=== PATIENT | male | born 1960 | race Caucasian/White ===

== ENCOUNTER 2019-06-04 12:13 | Inpatient (IN) ==
[2019-06-04 12:43] LABS: BASO# 0.01 X1000 (0.0-0.2); BASO% 0.1 % (0.0-0.8); EOS# 0.14 X1000 (0.0-0.7); EOS% 1.7 % (0.0-10.0); HEMATOCRIT 40.2 % (42.0-52.0); HEMOGLOBIN 13.4 g/dL (14.0-18.0); IMM GRAN# 0.03 X1000 (0.0-0.04); IMM GRAN% 0.4 % (0.0-0.5); LYMPH# 1.27 X1000 (1.2-3.4); MCH 29.8 PG (27-31); MCHC 33.3 g/dL (33-37); MCV 89.3 FL (81-99); MONO# 1.12 X1000 (0.11-0.59); MONO% 13.2 % (1.7-9.3); MPV 10.3 FL (7.4-10.4); NEUT# 5.89 X1000 (1.4-6.5); NEUT% 69.6 % (42.2-75.2); PLT 148 X1000 (130-400); RDW 13.8 % (11.5-14.5); WBC 8.46 X1000 (4.8-10.8)
[2019-06-04 12:59] LABS: ALBUMIN 3.6 g/dL (3.5-5.0); CALCIUM 7.8 mg/dL (8.8-10.2); CREATININE 1.4 mg/dL (0.7-1.2); POTASSIUM 4.7 mmol/L (3.5-5.1); TOTAL BILIRUBIN 0.7 mg/dL (0.20-1.00); TOTAL PROTEIN 6.6 g/dL (6.3-8.3)
[2019-06-04] MEDS ORDERED: NS 500 ML IV ONE (13:01)
--- NOTE | 2019-06-04 13:05 | PROVIDER DOCUMENTATION ---
HPI-Abdominal Pain/GI Problem - General Chief Complaint: Abdominal Pain Stated Complaint: N / D / ABD PAIN Time Seen by Provider: 06/04/19 12:44 Allergies/Adverse Reactions: Patient Allergies Allergy/AdvReac Type Severity Reaction Status Date / Time No Known Allergies Allergy Verified 06/04/19 16:12 Home Medications: Home Medication List Medication Instructions Recorded Confirmed Last Taken Type Insulin Aspart [Novolog] 10 units SUBQ TID AC 07/24/14 06/04/19 06/03/19 History Amiodarone [Cordarone] 200 mg PO DAILY 09/03/17 06/04/19 06/03/19 History Ascorbic Acid 500 mg PO BID 09/03/17 06/04/19 06/03/19 History Aspirin EC 81 mg PO DAILY 09/03/17 06/04/19 06/03/19 History Atorvastatin Calcium [Lipitor] 40 mg PO HS 09/03/17 06/04/19 06/03/19 History Bupropion HCl [Bupropion HCl Sr] 150 mg PO DAILY 09/03/17 06/04/19 06/03/19 History Carvedilol [Coreg] 6.25 mg PO BID 09/03/17 06/04/19 06/03/19 History Clopidogrel Bisulfate [Plavix] 75 mg PO DAILY 09/03/17 06/04/19 06/03/19 History Dexlansoprazole [Dexilant] 60 mg PO DAILY 09/03/17 06/04/19 06/03/19 History Ferrous Sulfate [Ferosul] 325 mg PO BID 09/03/17 06/04/19 06/03/19 History Furosemide [Lasix] 40 mg PO DAILY 09/03/17 06/04/19 06/03/19 History Gabapentin 600 mg PO TID 09/03/17 06/04/19 06/03/19 History Metoclopramide HCl 10 mg PO 4XDAY 09/03/17 06/04/19 06/03/19 History Mometasone/Formoterol [Dulera 100 2 inh PO BID 09/03/17 06/04/19 06/03/19 History Mcg/5 Mcg Inhaler] Nitroglycerin [Nitrostat] 0.4 mg SL DIRECTED 09/03/17 06/04/19 Unknown History Polyethylene Glycol 3350 [Miralax] 17 gm PO DAILY 09/03/17 06/04/19 06/03/19 History Spironolactone 25 mg PO BID 09/03/17 06/04/19 06/03/19 History Tenofovir Disoproxil Fumarate 300 mg PO DAILY 09/03/17 06/04/19 06/03/19 History [Viread] Albuterol 2.5MG/Ipratrop 0.5MG 3 ml INH RTQ6H #120 neb 09/04/17 06/04/19 0 06/03/19 Rx [Duoneb (A & A)] Hydromorphone HCl [Dilaudid] 8 mg PO Q8HR 06/25/18 06/04/19 06/03/19 History - History of Present Illness-ABD Nature of Presenting Problems: 58 YOM PRESENTS WITH C/O ABDOMINAL PAIN, N/V/D, POOR PO INTAKE LAST WEDNESDAY. DEN IES SOB, FEVER, CHILLS, CP. Abdominal Pain Onset Location: reports: generalized abdomen Pain Radiation: reports: no radiation Quality of Pain: reports: aching, fullness Severity in ED: reports: moderate Onset/Duration: reports: 6 days ago Timing: reports: still present Activities at Onset: reports: none Exposure to sick contacts?: No Modifying Factors: improves with: nothing Associated Symptoms: reports: dizziness, loss of appetite, nausea, vomiting Last BM: 24 hours ago Dark Stools Present?: reports: none noticed Rectal Bleeding: reports: none # of Diarrhea Episodes: 4 # of Vomiting Episodes: 6 Emesis Description: reports: none Bruising or Bleeding Gums?: No Similar Symptoms Previously?: No Recently seen or treated by another doctor?: No Review of Systems - Adult - REVIEW OF SYSTEMS - ADULT Constitutional: reports: no symptoms reported. denies: see HPI, chills, fever, fatique, night sweats, weight gain, weight loss, other Eyes: reports: no symptoms reported. denies: see HPI, discharge, dry eyes, decreased vision, blurred vision, double vision, eye pain, redness, other Ears, Nose, Mouth & Throat: reports: no symptoms reported. denies: see HPI, ear discharge, ear pain, hearing loss, tinnitus, epistaxis, sinus problem, nose pain, loose teeth, mouth/dental pain, mouth swelling, hoarseness, throat pain, throat swelling, other Cardiovascular: reports: no symptoms reported. denies: see HPI, chest pain, edema, heart murmur, irregular heart rate, orthopnea, palpitations, poor circulation, PND, syncope, other Respiratory: reports: no symptoms reported. denies: see HPI, chronic cough, cough, dyspnea on exertion, excessive sputum production, hemoptysis, pleurisy, shortness of breath, wheezing, other Gastrointestinal: reports: see HPI, abdominal pain, diarrhea, nausea, poor appetite, vomiting. denies: no symptoms reported, hematemesis, constipation, difficulty swallowing, frequent heartburn, rectal bleeding, other Genitourinary: reports: no symptoms reported. denies: see HPI, dysuria, discharge, frequency, flank pain, frequent UTI's, hematuria, hesitency, incontinence, urinary retention, urgency, other Musculoskeletal: reports: no symptoms reported. denies: see HPI, bone pain, back pain, frequent leg cramps, joint pain, joint swelling, muscle aches, muscle weakness, neck pain, other Integumentary: reports: no symptoms reported. denies: see HPI, hives, hair loss, itching, mole changes, nail changes, rash, skin sores/ulcer, skin thickening, other Neurological: reports: no symptoms reported. denies: see HPI, ataxia, dizziness/vertigo, headache/migraines, loss of balance, numbness, paresthesia, seizure, slurred speech, syncope, tremors, other Psychiatric: reports: no symptoms reported. denies: see HPI, anxiety, anti- depressant use, alcohol/drug dependence, depression, emotional problems, insomnia, panic attacks, suicidal thoughts, other Endocrine: reports: no symptoms reported. denies: see HPI, change in skin pigment, excessive sweating, goiter, cold intolerance, heat intolerance, increased hunger, increased thirst, polyuria, other Hematologic/Lymphatic: reports: no symptoms reported. denies: see HPI, blood clots, easy bruising, low blood count, lymphedema, prolonged bleeding, swollen lymph nodes, transfusions, other Allergic/Immunologic: reports: no symptoms reported. denies: see HPI, allergic reactions, allergic rhinitis, asthma, eczema, food allergy, frequent infections, hay fever, hives, positive PPD, urticaria, other Past History - Adult - PAST MEDICAL HISTORY-ADULT Review of Records: reports: Nursing Assessment Review, Social history reviewed & non-contributory. Cardiovascular: reports: CAD, HTN, hyperlipidemia, SC, other (Defib) Respiratory: reports: COPD Neurological: reports: CVA Endocrine/Immune: reports: Diabetes - PRIOR SURGERIES/PROCEDURES Surgical/Procedure History: reports: cholecystectomy, cardiac stent, other (Defib) - IMMUNIZATION STATUS Childhood Immunizations: See Nurse Assessment Flu Vaccine: See Nurse Assessment - FAMILY HISTORY Family History: reviewed, not pertinent Physical Exam-General - PHYSICAL EXAM-ADULT Initial Vital Signs Reviewed: Yes - CONSTITUTIONAL General Appearance: appears well, alert, no apparent distress - EYES Eyes: PERRL/EOMI, pink conjunctivae - HEAD, EARS, NOSE, MOUTH & THROAT HENMT: normocephalic/atraumatic, moist mucous membranes, normal ENT inspection - NECK Neck: non-tender, full range of motion, supple - RESPIRATORY Respiratory: chest non-tender, lungs clear, normal breath sounds - CARDIOVASCULAR Cardiovascular: normal peripheral pulses, regular rate, rhythm - GASTROINTESTINAL (ABDOMEN) Abdominal Exam: soft, distended, tenderness (GENERALIZED). negative: normal bowel sounds (HYPERACTIVE) - LYMPHATIC Lymphatic: no adenopathy - MUSCULOSKELETAL Back Exam: normal inspection Extremity: normal range of motion, non-tender, normal gait - SKIN Integumentary: normal color, normal turgor, warm/dry - NEUROLOGIC Neurologic: grossly normal - PSYCHIATRIC Psych/Mental Status: normal mood/affect, oriented x 3 Progress - PLAN OF CARE/RESULTS Progress/Plan/Lab Results: Vital Signs - 8 hr 06/04/19 12:17 Temperature 97.8 F Pulse Rate 98 H Respiratory Rate 18 Blood Pressure 124/79 O2 Sat by Pulse Oximetry 97 Laboratory Results - last 24 hr 06/04/19 06/04/19 06/04/19 12:32 12:32 12:32 WBC 8.46 RBC 4.50 L Hgb 13.4 L Hct 40.2 L MCV 89.3 MCH 29.8 MCHC 33.3 RDW Std Deviation 13.8 Plt Count 148 MPV 10.3 Immature Gran % (Auto) 0.4 Neut % (Auto) 69.6 Lymph % (Auto) 15.0 L Keith % (Auto) 13.2 H Eos % (Auto) 1.7 Baso % (Auto) 0.1 Immature Gran # (Auto) 0.03 Neut # (Auto) 5.89 Lymph # (Auto) 1.27 Keith # (Auto) 1.12 H Eos # (Auto) 0.14 Baso # (Auto) 0.01 Sodium 130 L Potassium 4.7 Chloride 97 L Carbon Dioxide 19 L Anion Gap 14 BUN 26 H Creatinine 1.4 H Estimated GFR/1.73 m2 52 BUN/Creatinine Ratio 19 Glucose 353 H Calculated Osmolality 280 Calcium 7.8 L Total Bilirubin 0.70 AST 27 ALT 13 Alkaline Phosphatase 141 H Total Protein 6.6 Albumin 3.6 Globulin 3.0 Albumin/Globulin Ratio 1.0 Amylase 22 Lipase 12 L Orders Category Date Time Status Saline Loc NOW Care 06/04/19 13:01 Active FLAT/UPRIGHT ABD/1 VIEW CHEST [RAD] Stat Exams 06/04/19 12:22 Taken AMYLASE [CHEM] Stat Lab 06/04/19 12:32 Completed CBC WITH DIFF [HEME] Stat Lab 06/04/19 12:32 Completed COMPREHENSIVE METABOLIC PANEL [CHEM] Stat Lab 06/04/19 12:32 Completed LIPASE [CHEM] Stat Lab 06/04/19 12:[address] W/POSS RFLX CULT [URINALYSIS] Stat Lab 06/04/19 12:22 Unc ollected 0.9% Sodium Chloride Inj [Ns] 500 ml Med 06/04/19 13:01 Active IV 999 mls/hr Result Diagrams: 06/04/19 12:32 06/04/19 12:32 - XRAY 1 XRAY Study: Abdomen Impression: Abnormal, Need Further Study, See EMR Report (EXAM: FLAT/UPRIGHT ABD/1 VIEW CHEST - 06/04/2019 HISTORY: abd pain left quad hx of constipation TECHNIQUE: Supine and upright abdomen one view chest COMPARISON: 12/08/2018 portable chest FINDINGS: There is gaseous distention of multiple small bowel loops. There is gas visible in nondistended colon. There are multiple air-fluid levels on the upright view. There is no free air identified. Upright chest shows stable upper normal heart size. Lungs appear clear. There is no pleural effusion or pneumothorax identified. IMPRESSION: Gaseous distention of multiple small bowel loops. The possibility of early or partial small bowel obstruction cannot be excluded. No evidence of acute cardiopulmonary disease. Electronically signed by Jordi Tierney 06/04/2019 1:03 PM 06/04/19 1303 Interpreting Physician: Jordi Tierney MD ictated Date/Time: 06/04/19 0690 cc: Charlie Melgoza MD; Devin Mosley MD) - CT/MRI 1 CT Study: Abdomen, Pelvis Impression: See EMR Report (EXAM: CT ABD/PELVIS W/IV CONT ONLY - 06/04/2019 HISTORY: abd pain, XRAY WITH DISTENTION TECHNIQUE: CT abdomen/pelvis with intravenous contrast. No oral contrast administered per request of the referring provider. COMPARISON: 06/04/2019 abdominal radiographs FINDINGS: There is mild distention of multiple proximal and mid small bowel loops with fluid and some air. There is moderate wall thickening along much of the distended small bowel loops. There are some retained fluid in distal small bowel, which may have slightly thickened light, but is not distended. There is haziness of the mesentery. These findings are suspicious for diffuse enteritis, which is most prominent at the proximal and mid small bowel. There is no discrete small bowel obstruction identified. There is retained fluid in the colon, which is non thickened to mildly thickened light. The possibility of mild diffuse colitis cannot be excluded. The appendix is unremarkable. There is apparent small fat- containing umbilical hernia. There is no abscess identified. There is no free air identified. There is a small amount of free fluid. There are no substantial abnormalities of the liver, spleen, adrenal glands, or pancreas identified. The gallbladder surgically absent. The bilateral kidneys enhance homogeneously. There is no hydronephrosis. There is some bilateral perinephric scarring. There are small to borderline retroperitoneal lymph nodes. There are atherosclerotic calcifications noted, including at the superior mesenteric artery. The distal aorta is borderline ectatic at 2.3 cm. The right common iliac artery is dilated at 2.4 cm. The left common iliac artery is borderline ectatic at 1.7 cm. IMPRESSION: Diffuse moderate enteritis, most prominent at proximal and mid small bowel. Apparent mild diffuse colitis. Mild mesenteric edema. Small amount of free fluid. No abscess. No free air. Small to borderline retroperitoneal lymph nodes. Dilated right common iliac artery at 2.4 cm. Atherosclerotic calcifications noted. This exam was performed using automated exposure control, adjustment of mA or kV according to patient size, and/or use of iterative reconstruction technique. Electronically signed by Jordi Tierney 06/04/2019 3:07 PM 06/04/19 3940 Interpreting Physician: Jordi Tierney MD Dictated Date/Time: 06/04/19 1452 cc: Amy Smith; Devin Mosley MD) - CONSULTS/PCP/HOSPITALIST Notification #1 *Consult/PCP/Hospitalist*: DR MIRANDA Time Discussed: 16:48 Consult Disposition: Admit Departure - Departure Date of Disposition Decision: 06/04/19 Time of Disposition Decision: 16:48 DIAGNOSIS: Colitis, Enteritis, Abdominal pain, Nausea vomiting and diarrhea Disposition: ADMITTED INPATIENT 09 Certified Medical Emergency: Emergent Condition: Stable Referrals and Follow-Ups: Devin Mosley MD [Primary Care Provider] - - Critical Care Note This patient required my direct & personal management of CC.: No Attestation - Physician/ LUTHER Attestation Patient care was provided by Advanced Practice Provider:: Yes Advanced Practice Provider:: Amy Smith Advanced Practice Provider documentation review:: The Mid-level provider documentation, treatment plan and medical decision making was reviewed by the physician who agrees with all treatment and medical decision making by the P. The physician spent face to face time with patient:: No Advanced Practice Provider documentation review:: Supervising physician onsite and consulted in the evaluation and care of this patient. The physician did not have a face to face encounter with the patient.
[2019-06-04 13:30] LABS: BILIRUBIN URINE NEGATIVE (NEGATIVE); BLOOD URINE TRACE (NEGATIVE); KETONE URINE TRACE mg/dL (NEGATIVE); LEUKOCYTES URINE TRACE (NEGATIVE); NITRITE URINE NEGATIVE (NEGATIVE); PROTEIN URINE 1+(30 mg/dL) mg/dL (NEGATIVE); UROBILINOGEN URINE 1 mg/dL
[2019-06-04 13:31] LABS: CLARITY CLEAR (CLEAR); COLOR YELLOW
[2019-06-04 13:32] LABS: URINE SOURCE CLEAN CATCH
[2019-06-04 13:33] LABS: URINE EPITHELIAL CELLS >10 /HPF (<10); URINE RBC <10 /HPF (<10)
[2019-06-04 13:34] LABS: URINE BACTERIA 3+ /HFP; URINE CAST NONE SEEN /LPF; URINE CRYSTAL NONE SEEN /HPF; URINE YEAST NONE SEEN /HPF
--- NOTE | 2019-06-04 15:09 | Diag Imaging Result Doc PS360 ---
EXAM: CT ABD/PELVIS W/IV CONT ONLY - 06/04/2019 HISTORY: abd pain, XRAY WITH DISTENTION TECHNIQUE: CT abdomen/pelvis with intravenous contrast. No oral contrast administered per request of the referring provider. COMPARISON: 06/04/2019 abdominal radiographs FINDINGS: There is mild distention of multiple proximal and mid small bowel loops with fluid and some air. There is moderate wall thickening along much of the distended small bowel loops. There are some retained fluid in distal small bowel, which may have slightly thickened light, but is not distended. There is haziness of the mesentery. These findings are suspicious for diffuse enteritis, which is most prominent at the proximal and mid small bowel. There is no discrete small bowel obstruction identified. There is retained fluid in the colon, which is non thickened to mildly thickened light. The possibility of mild diffuse colitis cannot be excluded. The appendix is unremarkable. There is apparent small fat-containing umbilical hernia. There is no abscess identified. There is no free air identified. There is a small amount of free fluid. There are no substantial abnormalities of the liver, spleen, adrenal glands, or pancreas identified. The gallbladder surgically absent. The bilateral kidneys enhance homogeneously. There is no hydronephrosis. There is some bilateral perinephric scarring. There are small to borderline retroperitoneal lymph nodes. There are atherosclerotic calcifications noted, including at the superior mesenteric artery. The distal aorta is borderline ectatic at 2.3 cm. The right common iliac artery is dilated at 2.4 cm. The left common iliac artery is borderline ectatic at 1.7 cm. IMPRESSION: Diffuse moderate enteritis, most prominent at proximal and mid small bowel. Apparent mild diffuse colitis. Mild mesenteric edema. Small amount of free fluid. No abscess. No free air. Small to borderline retroperitoneal lymph nodes. Dilated right common iliac artery at 2.4 cm. Atherosclerotic calcifications noted. This exam was performed using automated exposure control, adjustment of mA or kV according to patient size, and/or use of iterative reconstruction technique. Electronically signed by Jordi Tierney 06/04/2019 3:07 PM
[2019-06-04] MEDS ORDERED: MORPHINE IV ONE (15:20)
[2019-06-04] MEDS ORDERED: ZOFRAN IV ONE (15:20)
[2019-06-04 16:27] LABS: OCCULT BLOOD 1 NEGATIVE (NEGATIVE)
[2019-06-04] MEDS ORDERED: NS 1,000 ML IV ONE (16:51)
[2019-06-04] MEDS ORDERED: ZOFRAN IV PRN ×2 (18:32→20:25)
[2019-06-04] MEDS ORDERED: MORPHINE IV PRN (18:32)
[2019-06-04] MEDS ORDERED: NITROGLYCERIN SL PRN (20:15)
[2019-06-04] MEDS ORDERED: 1/2 NS 500 ML IV SCH (20:45)
[2019-06-04] MEDS: VITAMIN C PO SCH (21:12)
[2019-06-04] MEDS: FLOMAX PO SCH (21:12)
[2019-06-04] MEDS: LIPITOR PO SCH (21:12)
[2019-06-04] MEDS: REGLAN PO SCH (21:12)
[2019-06-04] MEDS: COLACE PO SCH (21:12)
[2019-06-04] MEDS: COREG PO SCH (21:12)
[2019-06-04] MEDS: WELLBUTRIN SR PO SCH (21:12)
[2019-06-04] MEDS: NEURONTIN PO SCH (21:12)
[2019-06-04] MEDS: DILAUDID IV PRN (21:43)
[2019-06-04] MEDS: HUMALOG (PARKWAY) SUBQ SCH (21:43)
[2019-06-04] MEDS: FLAGYL 500 MG/NS 500 MG/100 ML IVPB IV SCH (21:43)
[2019-06-04] MEDS: DUONEB (A & A) INH SCH (21:50)
[2019-06-04] MEDS: ROCEPHIN 1 GM in NS 50 ML IV SCH ×2 (23:09)
[2019-06-05] MEDS: DILAUDID IV PRN ×7 (00:25→21:35)
[2019-06-05] MEDS: FLAGYL 500 MG/NS 500 MG/100 ML IVPB IV SCH ×4 (03:13→15:24)
[2019-06-05] MEDS: DUONEB (A & A) INH SCH ×4 (03:17→21:44)
[2019-06-05 06:33] LABS: BASO# 0.01 X1000 (0.0-0.2); BASO% 0.2 % (0.0-0.8); EOS# 0.14 X1000 (0.0-0.7); EOS% 2.7 % (0.0-10.0); HEMATOCRIT 36.1 % (42.0-52.0); HEMOGLOBIN 11.6 g/dL (14.0-18.0); IMM GRAN# 0.04 X1000 (0.0-0.04); IMM GRAN% 0.8 % (0.0-0.5); LYMPH% 22.7 % (20.5-51.1); MCH 29.6 PG (27-31); MCHC 32.1 g/dL (33-37); MCV 92.1 FL (81-99); MONO# 0.85 X1000 (0.11-0.59); MONO% 16.1 % (1.7-9.3); NEUT# 3.04 X1000 (1.4-6.5); NEUT% 57.5 % (42.2-75.2); PLT 109 X1000 (130-400); RBC 3.92 XMIL (4.7-6.1); RDW 13.7 % (11.5-14.5); WBC 5.28 X1000 (4.8-10.8)
[2019-06-05] MEDS: HUMALOG (PARKWAY) SUBQ SCH ×4 (06:34→21:34)
[2019-06-05 06:43] LABS: AGAP 10; BUN 22 mg/dL (8-22); CALCIUM 7.8 mg/dL (8.8-10.2); CHLORIDE 104 mmol/L (98-107); COSMO 285; CREATININE 1.1 mg/dL (0.7-1.2); ESTIMATED GFR > 60; GLUCOSE 174 mg/dL (70-104); MAGNESIUM 1.7 mg/dL (1.5-2.7); POTASSIUM 4.1 mmol/L (3.5-5.1); SODIUM 139 mmol/L (136-145); TCO2 25 mmol/L (25-35)
[2019-06-05] MEDS ORDERED: MOVANTIK PO SCH (07:30)
[2019-06-05] MEDS: NEURONTIN PO SCH ×3 (08:48→20:24)
[2019-06-05] MEDS: PATIENT'S OWN MED PO SCH (08:48)
[2019-06-05] MEDS: ASPIRIN EC PO SCH (08:49)
[2019-06-05] MEDS: LASIX PO SCH (08:49)
[2019-06-05] MEDS: CORDARONE PO SCH (08:49)
[2019-06-05] MEDS: VITAMIN C PO SCH ×2 (08:49→20:25)
[2019-06-05] MEDS: ENTRESTO 24 MG-26 MG TABLET PO SCH ×2 (08:49→20:24)
[2019-06-05] MEDS: KLOR-CON PO SCH (08:49)
[2019-06-05] MEDS: WELLBUTRIN SR PO SCH ×2 (08:49→20:24)
[2019-06-05] MEDS: REGLAN PO SCH ×3 (08:49→15:24)
[2019-06-05] MEDS: COLACE PO SCH (08:49)
[2019-06-05] MEDS: COREG PO SCH ×2 (08:49→20:25)
[2019-06-05] MEDS: FERROUS SULFATE PO SCH ×3 (08:50→20:24)
[2019-06-05] MEDS: NON-FORMULARY MED PO SCH (08:50)
[2019-06-05] MEDS: PLAVIX PO SCH (08:50)
[2019-06-05] MEDS ORDERED: PRILOSEC PO SCH (09:00)
[2019-06-05] MEDS ORDERED: TENOFOVIR DISOPROXIL FUMARATE 300 MG PO SCH (09:00)
[2019-06-05] MEDS ORDERED: MIRALAX PO SCH (09:00)
[2019-06-05] MEDS ORDERED: MAG-OX PO SCH (09:00)
[2019-06-05] MEDS: DULERA 100 MCG/5 MCG INHALER INH SCH ×2 (10:07→21:44)
--- NOTE | 2019-06-05 16:13 | Diag Imaging Result Doc PS360 ---
EXAM: CHEST-2 VIEWS 06/05/2019 HISTORY: sob; hx sternectomy TECHNIQUE: PA and lateral chest COMMENT: There is cardiomegaly. There is increased interstitial opacity bilaterally. There is some more coarse opacities present on the left base than on the previous study of 06/04/2019. Otherwise are has been no appreciable change. IMPRESSION: Mild interstitial pulmonary edema with superimposed atelectasis versus pneumonia in the left lower lobe. Electronically signed by Mihai Wright 06/05/2019 4:11 PM
--- NOTE | 2019-06-05 16:31 | HISTORY AND PHYSICAL ---
ADDENDUM: ASSESSMENT AND PLAN: Also for the diarrhea, not only has he been on Colace and MiraLAX, which I have stopped, will stop the magnesium oxide for now. We will also start the scheduled Reglan and Movantik. We may have to resume some back but for now will hold it. Dictated by LAURA Lemus for Ish Hensley MD cc: LAURA Lemus MD
--- NOTE | 2019-06-05 16:36 | EKG Report ---
Test Performed on : 06/05/2019 4:10:30 PM Test Reason : hx afib; rythm evaluation Blood Pressure : / mmHG Vent. Rate : 067 BPM Atrial Rate : 067 BPM P-R Int : 158 ms QRS Dur : 116 ms QT Int : 414 ms P-R-T Axes : 032 019 175 degrees QTc Int : 437 ms Normal sinus rhythm. Septal infarct (cited on or before 30-JAN-2018) ST & T wave abnormality, consider inferolateral ischemia Abnormal ECG When compared with ECG of 23-JUN-2018 21:37, No significant change was found Confirmed by Jake Rowell MD ([id number]) on 06/15/2019 3:24:08 PM
[2019-06-05] MEDS: ZOSYN 3.375 GM in NS 50 ML IV SCH ×2 (17:05→23:27)
--- NOTE | 2019-06-05 17:09 | HISTORY AND PHYSICAL ---
PRIMARY CARE PROVIDER: LAURA El. PRIMARY RESIDENTIAL MORTGAGE MANAGER: Dr. Noel at [facility]. PRIMARY MAIL MACHINE OPERATOR OR LIVER PHYSICIAN: Dr. Otto from the [facility] in [place] through [facility]. CHIEF COMPLAINT: Nausea, vomiting, diarrhea and abdominal pain for 3 weeks. HISTORY OF PRESENT ILLNESS: Mr. 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 Most recently in September of 2018, he was treated for a sternal infection where he had to have a sternectomy with a sternal muscle flap placed. He was in the hospital at [facility] for 7 weeks, and treated by CV surgery at that time. He also had an AICD placed in 2015 for congestive heart failure, but it was also removed in September of 2018. He states that Dr. Noel his flattening press operator is discussing putting in another pacemaker, but for now he does not have one. He states that since August the month prior to having his sternectomy along with muscle flap he was started on cephalexin 500 mg 4 times a day. He had been on it since August. Apparently, he was treated with antibiotics and had surgery in September. He was there for 7 weeks, and went home with cephalexin 500 mg p.o. 4 times a day. Around 3 weeks ago, Dr. Noel had him stop his antibiotics, and wanted to see him in the office tomorrow, but also after he stopped his antibiotics 3 weeks ago he started developing fever, chills, nausea and vomiting. The emesis was green in color. The diarrhea that was black in color, but he is also on iron supplementation and left upper quadrant abdominal pain that radiates down to the left lower quadrant. He has had these symptoms for 3 weeks. Yesterday, he went to his nurse practitioner, Izabela Franklin, who sent him to [facility] for a CT of the abdomen and pelvis which resulted in diffuse moderate enteritis most prominent at the proximal and mid small bowel. There is mild diffuse colitis. Mild mesenteric edema with small amount of free fluid. There is small to borderline retroperitoneal lymph nodes. He was then admitted to the medical floor where he was started on Rocephin IV antibiotic coverage. Given these symptoms and the fact that he has been on long-term antibiotics, we will also order for C. Diff sample to rule out C diff colitis. He does not have an elevated white blood cell count and was afebrile on presentation. We will continue to treat here. He will need to reschedule his appointment with his flattening press operator Dr. Noel. He also states that since he has been here the bowel movements have slowed down. PAST MEDICAL HISTORY: 1. Coronary artery disease with a history of 3 myocardial infarctions and 1 cardiac stent. Also, with a history of coronary artery bypass grafting by Lacy Vallejo at [facility] in July of 2017. 2. In August and September of 2018, treated at [facility] for a sternal infection that required wound VAC, then a sternectomy and a muscle flap. He had 7 weeks of long-term hospital stay during that time. He is supposed to wear a chest brace at night. Apparently, there is no sternum at all. He claims that his ribs are floating so will get a chest x-ray. 3. Chronic atrial fibrillation, only on aspirin therapy. 4. Systolic congestive heart failure with an ejection fraction reported at 25%. 5. Hyperlipidemia. 6. Anxiety and depression. 7. Chronic pain disorder. 8. Diabetic neuropathy. 9. Diabetes mellitus type 2. 10. GERD. 11. Iron deficiency anemia. 12. Hepatitis B and C, diagnosed in 2012 after a massive weight loss which he states he got this from sexually transmitted diseases. 13. BPH. 14. Morbid obesity with a BMI of 37. 15. CVA with no residual. PAST SURGICAL HISTORY: 1. CABG x3 at [facility] in July of 2017. 1. Sternectomy with muscle flaps at [facility] September of 2018. 2. PTCA and cardiac stent x1. 3. AICD placed in 2015, and removed in September of 2018. 4. Right great toe amputation. 5. COPD on home oxygen. 6. CVA no residual. 7. Kidney stone x1. SOCIAL HISTORY: He was a remote one pack per day smoker for 30+ years. He quit smoking in 2017. Denies alcohol or illicit drug use. He is disabled. He lives with his niece. He asked to use a walker or cane for ambulation. He states that he occasionally drives to the drug store but that is it. FAMILY HISTORY: Mother had coronary artery disease at 70 years old with diabetes. Father had coronary artery disease and lung cancer. He at age 50. ALLERGIES: No known drug allergies. HOME MEDICATIONS: 1. Spironolactone 25 mg p.o. nightly. 2. Tamsulosin 0.4 mg p.o. nightly. 3. Dilaudid 8 mg p.o. every 8 hours. 4. Ascorbic Acid 500 mg p.o. twice daily. 5. Aspirin enteric-coated 81 mg p.o. daily. 6. Wellbutrin slow release 150 mg p.o. twice daily. 7. Bupropion 1 patch only once a week. 8. Amiodarone 200 mg p.o. daily. 9. Coreg 6.25 mg p.o. twice daily. 10. Dexilant 60 mg p.o. daily. 11. Docusate sodium 100 mg p.o. twice daily. 12. Dulera 2 puffs twice daily. 13. Entresto 24 - 26 mg a half tablet p.o. twice daily. 14. Ferrous Sulfate 325 mg p.o. 3 times a day. 15. Neurontin 600 mg p.o. 3 times a day. 16. Lasix 40 mg p.o. daily. 17. Lipitor 80 mg p.o. nightly. 18. Loperamide 2 capsules p.o. t.i.d. 19. Magnesium oxide 400 mg p.o. daily. 20. Reglan 10 mg p.o. before meals. 21. MiraLAX 17 g p.o. daily. 22. Movantik 25 mg p.o. daily. 23. Nitroglycerin 0.4 mg sublingual as directed or as needed for chest pain. 24. Insulin Aspart 25 units subcu t.i.d. after meals. 25. Zofran 4 mg p.o. every 6 hours p.r.n. 26. Phenergan 25 mg p.o. every 6 hours p.r.n. 27. Plavix 75 mg p.o. daily. 28. Potassium chloride 10 mEq p.o. daily. 29. Tresiba 65 units subcutaneous daily. 30. Tenofovir 25 mg p.o. daily. 31. Viread 300 mg p.o. daily. 32. Vitamin D2 99261 units. 33. Albuterol and Atrovent nebulizers every 6 hours p.r.n. REVIEW OF SYSTEMS: Fourteen point review of systems are complete and all were negative except those mentioned above in HPI. He has chronic pain in his sternal wall area, but also has chronic pain in his hands and feet. PHYSICAL EXAMINATION: VITAL SIGNS: Temperature 97.7 degrees, heart rate 69, respiratory rate 16, blood pressure 101/47, O2 saturation 94% on room air. 5 feet 10 inches tall, 262 pounds with a BMI of 37.7. GENERAL: Mr. Sergio Lackey is a 58-year-old male. He is in no acute distress. He is able answer questions appropriately. HEENT: Atraumatic, normocephalic. Pupils equal, round, and reactive to light. Extraocular movements intact. Mucous membranes are moist. NECK: Trachea midline. CARDIOVASCULAR: S1-S2. Regular rate and rhythm. Review of telemetry strips, he is also in normal sinus rhythm. No rubs, gallops, or murmurs. Trace lower extremity edema. +2 dorsalis and radial pulses. Negative JVD or carotid bruits. PULMONARY: Clear to auscultation bilateral breath sounds. No accessory muscle use or work of breathing noted. GI: Soft and nondistended. Actually, he is tender in the left upper quadrant tenderness, and left lower quadrant tenderness. Hyperactive bowel sounds. EXTREMITIES: Moves all extremities equally. Full range of motion. NEUROLOGIC: Alert and oriented x3. Follows commands. Sensory is intact. SKIN: Warm, dry, and intact. LABORATORY DATA: White blood cells 5000, hemoglobin 11, hematocrit 36, and platelet count 109,000. Sodium 139, potassium 4.1, BUN 22, and creatinine is 1.1. Glucose 174. Calcium 7.8. Magnesium 1.7. Bilirubin 0.70. AST 27 and ALT 13. Amylase 22 and lipase 12. Urinalysis 1+ protein, trace white blood cells, 10 to 20 microscopic white blood cells, 3+ bacteria, 2+ glucose. C. Diff negative. Blood negative. IMAGING: Abdominal and pelvic CT. Diffuse moderate enteritis most prominent proximal mid small bowel. Apparent mild diffuse colitis. Mild mesenteric edema with small amount of free fluid. No abscess. No free fluid. No free air. Small to borderline retroperitoneal lymph nodes. Dilated right common iliac artery at 2.4 cm. Atherosclerotic calcifications. Abdominal x-ray gaseous distention of multiple small bowel loops, possibility of early or partial small bowel obstruction cannot be excluded. ASSESSMENT AND PLAN: 1. Nausea, vomiting, and diarrhea with abdominal pain diagnosed by imaging with enteritis. Proximal mid small bowel and mild diffuse colitis. He was initially started on ceftriaxone 1 g IV q.24 hours, and still having abdominal pain. His diarrhea has slowed down, and his nausea is better. We will probably switch him to Zosyn. He is also on Flagyl. We will keep that for now, but we will have to be careful because he does have a history of hepatitis B and C, that he is actively in treatment for. 2. Recently, he had a sternal infection in September of 2018 where he had to have a sternectomy and muscle flaps. The muscle flap was performed by plastic surgery, and the sternectomy was performed by Dr. Lacy Vallejo at [facility], which has caused him to have to be chronically on cephalexin 500 mg 4 times a day since August of 2018. He only stopped this 3 weeks ago. He was actually supposed to follow up with his flattening press operator at [facility] Dr. Noel tomorrow which will have to be rescheduled. It was during this most recent event that they removed his permanent pacemaker defibrillator, which was actually in for his severe congestive heart failure. 3. Systolic congestive heart failure with an ejection fraction reported at 25%. His last echo here was May of 2018, and he still had an EF of 25% then. He is continued on Lasix. It is noted that he had fluids running when being assessed so we will stop those as he is a little bit short of breath. No obvious signs of acute exacerbation. He has been continued on aspirin and Coreg. He is continued on Entresto and spironolactone. 4. COPD. No exacerbation. Albuterol and Atrovent every 6 hours. He is on Dulera 2 puffs twice a day. 5. History of coronary artery disease with CABG. Continued on Plavix, aspirin, beta jennifer, and statin. 6. Hyperlipidemia. Continue on statin. 7. Chronic pain. Continue pain control with Dilaudid. 8. Hepatitis B and C, diagnosed in [address] Otto at [facility] in [place]. He will continue his Tenofovir. 9. Diabetes mellitus type 2 with hyperglycemia. We will check a hemoglobin A1c. He is continued on his 65 units of Tresiba at night. He is on a sliding scale insulin. 10. BPH. Continue Flomax. 11. GERD. Continue Prilosec. 12. Diabetic neuropathy. Continue Neurontin. 13. Iron deficiency anemia. Continue with iron and vitamin C. 14. Anxiety and depression. Continue with Wellbutrin. 15. Chronic atrial fibrillation. Continue amiodarone and aspirin. He is currently actually in normal sinus rhythm. Keep electrolytes replaced. We will get EKG to confirm the normal sinus rhythm. 16. Deep venous thrombosis prophylaxis. He is currently on aspirin and Plavix and SCD's. 17. He does have diarrhea so we will stop his Colace scheduled and his MiraLAX. 18. Mild acute kidney injury on admission likely secondary to dehydration. He has received plenty of IV fluid hydration. He is on a regular diet so we will stop his IV fluids, and acute kidney injury is already resolved. Dictated by LAURA Lemus for Ish Hensley MD cc: LUARA Lemus MD Anna M. Dumas, CRNP Dr . Maddox MTDD
--- NOTE | 2019-06-05 19:05 | HISTORY AND PHYSICAL ---
ADDENDUM: Patient seen and examined by myself. Full note dictated and discussed with nurse practitioner. Patient presented to the hospital with nausea, vomiting, abdominal pain, and diarrhea for the past 3 weeks. He has an extensive medical history as well as prescription list. CT of the abdomen demonstrated diffuse enteritis. We are going to admit him to the hospital, place him on antibiotics, IV fluids, and will follow. cc: Ish Hensley MD
[2019-06-05] MEDS: FLOMAX PO SCH (20:24)
[2019-06-05] MEDS: LIPITOR PO SCH (20:24)
[2019-06-05] MEDS ORDERED: TRESIBA FLEXTOUCH U-200 SUBQ SCH (21:00)
[2019-06-05] MEDS ORDERED: ALDACTONE PO SCH (21:00)
[2019-06-06] MEDS: FLAGYL 500 MG/NS 500 MG/100 ML IVPB IV SCH ×2 (00:25→08:13)
[2019-06-06] MEDS: DILAUDID IV PRN ×4 (02:32→13:45)
[2019-06-06] MEDS: DUONEB (A & A) INH SCH ×2 (03:15→10:00)
[2019-06-06] MEDS: ZOSYN 3.375 GM in NS 50 ML IV SCH ×2 (05:36→11:09)
[2019-06-06] MEDS: PRILOSEC PO SCH ×2 (05:36→06:13)
[2019-06-06 06:12] LABS: BASO# 0.01 X1000 (0.0-0.2); BASO% 0.2 % (0.0-0.8); EOS# 0.11 X1000 (0.0-0.7); EOS% 2.4 % (0.0-10.0); HEMATOCRIT 35.6 % (42.0-52.0); HEMOGLOBIN 11.6 g/dL (14.0-18.0); IMM GRAN# 0.02 X1000 (0.0-0.04); IMM GRAN% 0.4 % (0.0-0.5); LYMPH# 1.13 X1000 (1.2-3.4); LYMPH% 24.2 % (20.5-51.1); MCH 29.5 PG (27-31); MCHC 32.6 g/dL (33-37); MCV 90.6 FL (81-99); MONO# 0.53 X1000 (0.11-0.59); MONO% 11.4 % (1.7-9.3); MPV 10.6 FL (7.4-10.4); NEUT# 2.86 X1000 (1.4-6.5); NEUT% 61.4 % (42.2-75.2); PLT 107 X1000 (130-400); RBC 3.93 XMIL (4.7-6.1); RDW 13.3 % (11.5-14.5); WBC 4.66 X1000 (4.8-10.8)
[2019-06-06] MEDS: HUMALOG (PARKWAY) SUBQ SCH ×2 (06:13→10:54)
[2019-06-06 06:43] LABS: AGAP 10; ALBUMIN 3.6 g/dL (3.5-5.0); ALKALINE PHOSPHATASE 132 U/L (32-122); BUN 12 mg/dL (8-22); CALCIUM 8.1 mg/dL (8.8-10.2); CHLORIDE 103 mmol/L (98-107); COSMO 278; CREATININE 0.9 mg/dL (0.7-1.2); ESTIMATED GFR > 60; GLUCOSE 150 mg/dL (70-104); GOT 17 U/L (10-34); GPT 8 U/L (10-44); SODIUM 138 mmol/L (136-145); TCO2 25 mmol/L (25-35); TOTAL PROTEIN 6.2 g/dL (6.3-8.3)
[2019-06-06 07:23] VITALS: BP 119/60
[2019-06-06] MEDS: ENTRESTO 24 MG-26 MG TABLET PO SCH (08:13)
[2019-06-06] MEDS: VITAMIN C PO SCH (08:15)
[2019-06-06] MEDS: CORDARONE PO SCH (08:15)
[2019-06-06] MEDS: WELLBUTRIN SR PO SCH (08:15)
[2019-06-06] MEDS: ASPIRIN EC PO SCH (08:15)
[2019-06-06] MEDS: PLAVIX PO SCH (08:15)
[2019-06-06] MEDS: NEURONTIN PO SCH ×2 (08:15→13:45)
[2019-06-06] MEDS: FERROUS SULFATE PO SCH (08:15)
[2019-06-06] MEDS: KLOR-CON PO SCH (08:15)
[2019-06-06] MEDS: LASIX PO SCH (08:15)
[2019-06-06] MEDS: COREG PO SCH (08:16)
[2019-06-06] MEDS: DULERA 100 MCG/5 MCG INHALER INH SCH (09:59)
[2019-06-06] MEDS: NON-FORMULARY MED PO SCH (10:52)
[2019-06-06] MEDS: PATIENT'S OWN MED PO SCH (10:52)
--- NOTE | 2019-06-06 19:15 | DISCHARGE SUMMARY ---
ADMISSION DATE: 06/04/2019 DISCHARGE DATE: 06/06/2019 ADMISSION DIAGNOSES: 1. Nausea, vomiting, diarrhea, and abdominal pain, diagnosed with enteritis and colitis. 2. Recent sternal infection, now healed. 3. Systolic congestive heart failure, nothing acute. 4. Chronic obstructive pulmonary disease, no exacerbation. 5. History of coronary artery disease with coronary artery bypass graft, no chest pain. 6. Hyperlipidemia. 7. Chronic pain. 8. Hepatitis B and C, stable on current treatment. 9. Diabetes mellitus type 2 with hyperglycemia. 10. Benign prostatic hypertrophy. 11. Gastroesophageal reflux disease. 12. Diabetic neuropathy. 13. Iron deficiency anemia. 14. Anxiety and depression. 15. Chronic atrial fibrillation. 16. Mild acute kidney injury, resolved. 17. Diarrhea. DISCHARGE DIAGNOSES: 1. Enteritis/colitis. 2. Abdominal pain. CONSULTATIONS: None. SURGERIES AND PROCEDURES: None. HOSPITAL COURSE: Mr. Sergio Lackey is a 58-year-old male with a significant medical history, presents here after going three weeks without his long-term antibiotics that he was on for a sternal infection he had back in September. In the whole three weeks that he has been off his chronic antibiotic use he had abdominal pain, bloating, nausea, vomiting, with diarrhea. He tested negative for C difficile. He was started on antibiotic therapy and today will go home with Flagyl and Levaquin. Vitals remained stable and he will follow up with his primary care provider after discharge. Diarrhea has slowed down. Nausea improved. DISCHARGE VITAL SIGNS: Temperature 97.4, heart rate 68, respiratory rate 18, blood pressure 119/60, O2 saturation 93% on room air. LAB DATA: White blood cells 4000, hemoglobin 11, hematocrit 35, platelet count 107,000. Sodium 138, potassium 4.0, BUN 12, creatinine 0.9, glucose 150. Hemoglobin A1c 11. Calcium 8.1. Bilirubin 0.40, AST 17, ALT 8. ProBNP 707. Albumin 3.6. Amylase 22 and lipase 12. IMAGING: Abdominal x-ray with gaseous distention of multiple small bowel loops, possibility of early or partial small bowel obstruction could not be excluded. Abdominal and pelvic CT showed diffuse moderate enteritis most prominent at the proximal mid small bowel, apparently mild diffuse colitis, mild mesenteric edema, small amount of free fluid, no abscess, no free air, small to borderline retroperitoneal lymph nodes, dilated right common iliac artery at 2.4 cm, atherosclerotic calcifications. Chest x-ray with mild interstitial pulmonary edema with superimposed atelectasis versus pneumonia in the left lower lobe. EKG showed normal sinus rhythm, rate 67, QTc 437. DIET: Heart healthy diabetic. ACTIVITY: As tolerated. DISCHARGE MEDICATIONS: New prescriptions 1. Dilaudid 8 mg p.o. every 8 hours as needed. 2. Flagyl 500 mg p.o. t.i.d. 3. Levaquin 500 mg p.o. daily. OTHER MEDICATIONS: Include 1. Spironolactone 25 mg p.o. nightly. 2. Tamsulosin 0.4 mg p.o. nightly. 3. Aspirin enteric-coated 81 mg p.o. daily. 4. Wellbutrin 150 mg p.o. twice a day. 5. Butrans one patch subdermal weekly. 6. Amiodarone 200 mg p.o. daily. 7. Coreg 6.25 mg p.o. twice a day. 8. Dexilant 60 mg p.o. daily. 9. Docusate sodium 100 mg p.o. twice daily. 10.Dulera twice daily. 11.Entresto half tablet p.o. twice a day. 12.Ferrous sulfate 325 mg p.o. b.i.d. 13.Neurontin 600 mg p.o. t.i.d. 14.Lasix 40 mg p.o. daily. 15.Lipitor 80 mg p.o. nightly. 16.Imodium two capsules p.o. t.i.d. as needed. 17.Mag Ox 400 mg p.o. daily. 18.Reglan 10 mg p.o. before meals and at night. 19.MiraLAX 17 grams p.o. daily. 20.Movantik 25 mg p.o. daily. 21.Nitroglycerin sublingual as directed for chest pain. 22.NovoLog 25 units subcutaneously three times a day. 23.Zofran 4 mg p.o. every six hours p.r.n. 24.Phenergan 25 mg p.o. every six hours p.r.n. 25.Plavix 75 mg p.o. daily. 26.Potassium chloride 10 mEq p.o. daily. 27.Tresiba 65 units subcutaneously daily. 28.Tenofovir 325 mg p.o. daily. 29.Vitamin D2 50,000 units p.o. as directed. 30.Albuterol/Atrovent inhaled every six hours as needed. PHYSICIAN FOLLOW UP: He will need to follow up with Dr. Noel at [facility]. Also, will need to follow up with his primary care provider. DISCHARGE INSTRUCTIONS: If your condition changes, contact physician and/or return to the emergency department. Changes may include, but are not limited to, shortness of breath, increased fatigue, excessive bleeding, unexplained weight loss or gain, unmanageable pain, signs or symptoms of infection. DISCHARGE DISPOSITION: Home. Dictated by LAURA Lemus for Flavio Norris MD Addendum: Patient seen and examined by myself. Agree with LAURA note. It reflects my assessment and plan. Patient is being discharged in stable condition. Will be seen by Dr. Noel at [facility]. Pt need to call to reschedule his appointment. cc: LAURA Lemus MD [facility]
[2019-06-09] MEDS ORDERED: BUPRENORPHINE 15 MCG/HR PATCH TD SCH (07:00)
== END 2019-06-06 15:18 | disposition home or self-care (01) | DRG 392 ==
LOC: P.ED 12:13 → P.MEDSURG 18:07 → SUATTDRO 18:07
PROVIDERS: ATTEND Internal Medicine

== ENCOUNTER 2019-06-22 15:18 | Observation (INO) ==
[~2019-06-22 15:18] MED LIST: ASPIRIN PO ONE
[2019-06-22] MEDS ORDERED: NS 500 ML ONE (15:44)
--- NOTE | 2019-06-22 15:47 | EKG Report ---
Test Performed on : 06/22/2019 3:13:54 PM Test Reason : chest pain Blood Pressure : / mmHG Vent. Rate : 093 BPM Atrial Rate : 093 BPM P-R Int : 136 ms QRS Dur : 108 ms QT Int : 350 ms P-R-T Axes : 064 050 198 degrees QTc Int : 435 ms Normal sinus rhythm. Anterior infarct , age undetermined ST & T wave abnormality, consider inferolateral ischemia Abnormal ECG No previous ECGs available Unconfirmed Result
[2019-06-22 16:26] LABS: BASO# 0.06 X1000 (0.0-0.2); BASO% 0.6 % (0.0-0.8); EOS# 0.16 X1000 (0.0-0.7); EOS% 1.5 % (0.0-10.0); HEMATOCRIT 38.7 % (42.0-52.0); IMM GRAN# 0.06 X1000 (0.0-0.04); IMM GRAN% 0.6 % (0.0-0.5); LYMPH# 2.15 X1000 (1.2-3.4); LYMPH% 20.5 % (20.5-51.1); MCHC 33.6 g/dL (33-37); MCV 89.2 FL (81-99); MONO# 1.16 X1000 (0.11-0.59); MONO% 11.1 % (1.7-9.3); MPV 10.4 FL (7.4-10.4); NEUT% 65.7 % (42.2-75.2); PLT 205 X1000 (130-400); RBC 4.34 XMIL (4.7-6.1); RDW 13.3 % (11.5-14.5); WBC 10.49 X1000 (4.8-10.8)
[2019-06-22 16:31] LABS: INR 0.95; PROTIME 13.2 Seconds (11.0-16.0)
[2019-06-22 16:32] LABS: PTT 33.7 Seconds (22.3-41.8)
[2019-06-22 16:41] LABS: ALBUMIN 4.4 g/dL (3.5-5.0); CALCIUM 9.5 mg/dL (8.8-10.2); CREATININE 1.7 mg/dL (0.7-1.2); POTASSIUM 4.3 mmol/L (3.5-5.1); TOTAL BILIRUBIN 0.3 mg/dL (0.20-1.00); TOTAL PROTEIN 6.7 g/dL (6.3-8.3)
[2019-06-22] MEDS ORDERED: NS 500 ML IV ONE (16:56)
--- NOTE | 2019-06-22 16:56 | Diag Imaging Result Doc PS360 ---
CT ABDOMEN/PELVIS W/O CONTRAST - 06/22/2019 INDICATION: abdominal pain COMPARISON: 06/04/2019 FINDINGS: The lung bases are clear and the heart size is normal. No radiodense renal stones. No hydronephrosis or hydroureter. There are cholecystectomy clips. No bowel obstruction or inflammation. Normal appendix. Urinary bladder, prostate, and rectum are normal. There are moderate degenerative changes of the spine. No acute or suspicious bony lesion. IMPRESSION: Negative exam. This exam was performed using automated exposure control, adjustment of mA or kV according to patient size, and/or use of iterative reconstruction technique Electronically signed by Fox Almonte 06/22/2019 4:54 PM
[2019-06-22] MEDS ORDERED: ZOFRAN IV PRN (17:26)
[2019-06-22] MEDS ORDERED: TYLENOL PO PRN (17:26)
[2019-06-22] MEDS ORDERED: LOVENOX SUBQ SCH (17:30)
[2019-06-22] MEDS ORDERED: NS 1,000 ML IV SCH (17:30)
--- NOTE | 2019-06-22 17:49 | Diag Imaging Result Doc PS360 ---
CHEST-2 VIEWS - 06/22/2019 INDICATION: chest pain COMPARISON: 06/05/2019 FINDINGS: Stable low lung volumes. Stable cardiomegaly. No infiltrates or definite edema. No pneumothorax or pleural effusion. IMPRESSION: Mild cardiomegaly. Electronically signed by Fox Almonte 06/22/2019 5:46 PM
[2019-06-22] MEDS ORDERED: MORPHINE IV PRN (17:54)
--- NOTE | 2019-06-22 18:51 | PROVIDER DOCUMENTATION ---
This chart was entered by Gita Meza Scribe, acting as scribe for Yessica Aguila MD. HPI-Abdominal Pain/GI Problem - General Chief Complaint: Chest Pain Stated Complaint: CHEST PAIN Time Seen by Provider: 06/22/19 15:23 Source: patient Allergies/Adverse Reactions: Patient Allergies Allergy/AdvReac Type Severity Reaction Status Date / Time No Known Allergies Allergy Verified 06/22/19 15:22 Home Medications: Home Medication List Medication Instructions Recorded Confirmed Last Taken Type Amiodarone [Cordarone] 200 mg PO DAILY 09/03/17 06/04/19 06/03/19 History Aspirin EC 81 mg PO DAILY 09/03/17 06/22/19 06/22/19 17:00 History Atorvastatin Calcium [Lipitor] 80 mg PO HS 09/03/17 06/22/19 06/21/19 21:00 History Bupropion HCl [Bupropion HCl Sr] 150 mg PO BID 09/03/17 06/22/19 06/03/19 History Carvedilol [Coreg] 6.25 mg PO BID 09/03/17 06/22/19 06/22/19 09:00 History Clopidogrel Bisulfate [Plavix] 75 mg PO DAILY 09/03/17 06/22/19 06/22/19 09:00 History Dexlansoprazole [Dexilant] 60 mg PO DAILY 09/03/17 06/22/19 06/22/19 09:00 Hi story Ferrous Sulfate [Ferosul] 325 mg PO TID 09/03/17 06/22/19 06/22/19 09:00 History Furosemide [Lasix] 40 mg PO DAILY 09/03/17 06/22/19 06/22/19 09:00 History Gabapentin 600 mg PO TID 09/03/17 06/22/19 06/22/19 09:00 History Metoclopramide HCl 10 mg PO AC + HS 09/03/17 06/04/19 06/22/19 09:00 History Nitroglycerin [Nitrostat] 0.4 mg SL DIRECTED 09/03/17 06/04/19 Unknown History Spironolactone 25 mg PO QHS 09/03/17 06/22/19 06/21/19 21:00 History Albuterol 2.5MG/Ipratrop 0.5MG 3 ml INH RTQ6H #120 neb 09/04/17 06/04/19 06/22/19 09:00 Rx [Duoneb (A & A)] Buprenorphine [Butrans] 1 patch SQ DIRECTED 06/04/19 06/22/19 06/15/19 09:00 History Docusate Sodium 100 mg PO BID 06/04/19 06/22/19 06/22/19 09:00 History Ergocalciferol (Vitamin D2) 1 cap PO DIRECTED 06/04/19 06/04/19 Unknown History [Vitamin D] Loperamide HCl [Loperamide] 1 tab PO Q4H PRN 06/04/19 06/22/19 Unknown History Magnesium Oxide 400 mg PO DAILY 06/04/19 06/22/19 06/22/19 09:00 History Naloxegol Oxalate [Movantik] 25 mg PO DAILY 06/04/19 06/22/19 06/22/19 09:00 History Ondansetron HCl 4 mg PO Q6H PRN PRN 06/04/19 06/22/19 Unknown History Potassium Chloride 10 meq PO DAILY 06/04/19 06/22/19 06/22/19 09:00 History Promethazine [Phenergan] 25 mg PO Q8H PRN PRN 06/04/19 06/22/19 Unknown History Tamsulosin HCl 0.4 mg PO QHS 06/04/19 06/22/19 06/22/19 09:00 History Tenofovir Alafenamide Fumarate 25 mg PO DAILY 06/04/19 06/22/19 06/22/19 09:00 History [Vemlidy] Levofloxacin 500 mg PO DAILY #7 tab 06/06/19 Unknown Rx Budesonide/Formoterol Fumarate 2 puff INHALATION BID 06/22/19 06/22/19 06/22/19 09:00 History [Symbicort 160-4.5 Mcg Inhaler] Cholecalciferol (Vit D3) [Vitamin 1 cap PO DAILY 06/22/19 06/22/19 06/22/19 09:00 History D] Diclofenac Sodium 1 tab PO TID 06/22/19 06/22/19 06/22/19 09:00 History Doxycycline Monohydrate [Adoxa] 1 tab PO BID 06/22/19 06/22/19 Unknown History Hydrochlorothiazide 1 tab PO DAILY 06/22/19 06/22/19 06/22/19 09:00 History Hydromorphone HCl [Dilaudid] 1 tab PO TID 06/22/19 06/22/19 06/22/19 09:00 History Insulin Aspart [Novolog] 25 units SQ TID 06/22/19 06/22/19 06/22/19 09:00 History Insulin Degludec [Tresiba 65 units SQ DAILY 06/22/19 06/22/19 06/22/19 09:00 History Flextouch U-200] Insulin Degludec/Liraglutide 50 units SQ DAILY 06/22/19 06/22/19 06/22/19 09:00 History [Xultophy 100 Unit-3.6MG/ml Pen] Insulin Glargine,Hum.rec.anlog 50 units SQ HS 06/22/19 06/22/19 06/21/19 21:00 History [Lantus Solostar] Ketoconazole 20 mg TOP BID 06/22/19 06/22/19 06/22/19 09:00 History Lactulose 30 ml PO BID 06/22/19 06/22/19 06/22/19 09:00 History Metoclopramide [Reglan] 1 tab PO AC + HS 06/22/19 06/22/19 06/22/19 09:00 History Mometasone/Formoterol [Dulera 100 2 puff INHALATION BID 06/22/19 06/22/19 Unknown History Mcg/5 Mcg Inhaler] Olanzapine 1 tab PO DAILY 06/22/19 06/22/19 06/22/19 09:00 History Polyethylene Glycol 3350 [Miralax] 1 packet PO DAILY 06/22/19 06/22/19 06/22/19 09:00 History Prasugrel [Effient] 1 tab PO BID 06/22/19 06/22/19 06/22/19 09:00 History Sacubitril/Valsartan [Entresto 24 0.5 tab PO BID 06/22/19 06/22/19 06/22/19 09:00 History mg-26 mg Tablet] Trazodone [Desyrel] 150 mg PO HS 06/22/19 06/22/19 06/21/19 21:00 History - History of Present Illness-ABD Nature of Presenting Problems: Patient is a 58 year old male who presents to the ED via EMS with epigastric and LLQ abdominal pain. States having chest pain with abdominal pain. Reports symptoms have been intermittent for about 30 minutes. Denies shortness of breath. Abdominal Pain Onset Location: reports: LLQ, epigastric Pain Radiation: reports: no radiation Quality of Pain: reports: cramping, sharp Severity in ED: reports: mild, moderate Onset/Duration: reports: 1/2 hour ago Timing: reports: still present, intermittent Associated Symptoms: reports: chest pain Bruising or Bleeding Gums?: No Similar Symptoms Previously?: Yes Recently seen or treated by another doctor?: Yes Review of Systems - Adult - REVIEW OF SYSTEMS - ADULT Constitutional: reports: no symptoms reported. denies: chills, fever, fatique Eyes: reports: no symptoms reported Ears, Nose, Mouth & Throat: reports: no symptoms reported Cardiovascular: reports: see HPI, chest pain. denies: irregular heart rate, palpitations Respiratory: reports: no symptoms reported Gastrointestinal: reports: see HPI, abdominal pain. denies: nausea, vomiting Genitourinary: reports: no symptoms reported Musculoskeletal: reports: no symptoms reported Integumentary: reports: no symptoms reported Neurological: reports: no symptoms reported Psychiatric: reports: no symptoms reported Endocrine: reports: no symptoms reported Hematologic/Lymphatic: reports: no symptoms reported Allergic/Immunologic: reports: no symptoms reported All Other Systems: Reviewed and Negative Past History - Adult - PAST MEDICAL HISTORY-ADULT Review of Records: reports: Old Records Reviewed, Social history reviewed & non- contributory. Major Childhood Illnesses: reports: denies history Cardiovascular: reports: CAD, CHF, HTN, hyperlipidemia, MS, other (Defib) Respiratory: reports: COPD, sleep apnea Gastrointestinal: reports: GERD, liver disease Obstetrical/Gynecological: reports: denies history Genitourinary: reports: kidney disease Musculoskeletal: reports: denies history Neurological: reports: CVA, Seizures/Epilepsy Endocrine/Immune: reports: Diabetes Other Conditions: reports: denies history - PRIOR SURGERIES/PROCEDURES Surgical/Procedure History: reports: cholecystectomy, cardiac stent, other (Defib) - IMMUNIZATION STATUS Childhood Immunizations: See Nurse Assessment Flu Vaccine: See Nurse Assessment - FAMILY HISTORY Family History: reviewed, not pertinent - SOCIAL HISTORY Smoking: cigarettes (former) Substance Use: denies Physical Exam-General - PHYSICAL EXAM-ADULT Initial Vital Signs Reviewed: Yes - CONSTITUTIONAL General Appearance: alert, mild distress. negative: lethargic - HEAD, EARS, NOSE, MOUTH & THROAT HENMT: normocephalic/atraumatic, moist mucous membranes. negative: angioedema - RESPIRATORY Respiratory: chest non-tender, lungs clear, normal breath sounds, other (chest binder present.). negative: crackles - CARDIOVASCULAR Cardiovascular: normal peripheral pulses, regular rate, rhythm. negative: tachycardia - GASTROINTESTINAL (ABDOMEN) Abdominal Exam: normal bowel sounds, soft, tenderness (LLQ). negative: guarding, rebound - MUSCULOSKELETAL Extremity: normal inspection. negative: deformity, erythema - SKIN Integumentary: normal color, normal turgor, warm/dry. negative: diaphoresis, ecchymosis, jaundice, rash - NEUROLOGIC Neurologic: grossly normal. negative: aphasia, facial droop - PSYCHIATRIC Psych/Mental Status: normal mood/affect, oriented x 3. negative: anxious Progress - PLAN OF CARE/RESULTS Progress/Plan/Lab Results: Vital Signs - 8 hr 06/22/19 15:19 06/22/19 15:22 Temperature 97.8 F Pulse Rate 81 Respiratory Rate 20 Blood Pressure 81/49 O2 Sat by Pulse Oximetry 93 L Orders Category Date Time Status Cardiac Monitoring DIRECTED Care 06/22/19 15:19 Active Oxygen Therapy- ED Nursing DIRECTED Care 06/22/19 15:19 Active Saline Loc NOW Care 06/22/19 15:19 Active CHEST-2 VIEWS [RAD] Stat Exams 06/22/19 15:19 Ordered CBC WITH ELECTRONIC DIFF [HEME] Stat Lab 06/22/19 15:19 Uncollected CK PROFILE [SP CHEM] Stat Lab 06/22/19 15:19 Uncollected COMPREHENSIVE METABOLIC PANEL [CHEM] Stat Lab 06/22/19 15:19 Uncollected PRO B-NATRIURETIC PEPTIDE Stat Lab 06/22/19 15:19 Uncollected PROTIME WITH INR [COAG] Stat Lab 06/22/19 15:19 Uncollected PTT [COAG] Stat Lab 06/22/19 15:19 Uncollected TROPONIN T Stat Lab 06/22/19 15:19 Uncollected Aspirin Med 06/22/19 15:18 Discontinued 325 mg PO NOW ONE CP/SOB/Palp >45 yrs of Age Stat Oth 06/22/19 15:18 Ordered EKG [EKG] Stat Ther 06/22/19 15:19 Ordered Result Diagrams: 06/23/19 05:56 06/23/19 05:56 - EKG 1 Time of EKG reading by physician:: 15:13 EKG Read and Signed by:: Yessica Aguila EKG Interpretation (*Must complete 3 of following elements*): Abnormal (ST & T wave abnormality, consider inferolateral ischemia) Rate: 93 Rhythm: normal sinus rhythm [place]: normal MA Interval: normal Comments: anterior infarct, age undetermined; - CT/MRI 1 CT Study: Abdomen, Pelvis Impression: See EMR Report (CT ABDOMEN/PELVIS W/O CONTRAST - 06/22/2019 INDICATION: abdominal pain COMPARISON: 06/04/2019 FINDINGS: The lung bases are clear and the heart size is normal. No radiodense renal stones. No hydronephrosis or hydroureter. There are cholecystectomy clips. No bowel obstruction or inflammation. Normal appendix. Urinary bladder, prostate, and rectum are normal. There are moderate degenerative changes of the spine. No acute or suspicious bony lesion. IMPRESSION: Negative exam. This exam was performed using automated exposure control, adjustment of mA or kV according to patient size, and/or use of iterative reconstruction technique Electronically signed by Fox Almonte 06/22/2019 4:54 PM 06/22/191653 Interpreting Physician: Fox Almonte MD Dictated Date/Time: 06/22/191651 cc: Yessica Aguila MD; None,PCP) - CONSULTS/PCP/HOSPITALIST Notification #1 *Consult/PCP/Hospitalist*: LAURA Olivera for Hospitalist Time Discussed: 17:22 Reason/Comments: Dr. Aguila consulted with Joselin about patient. Consult Disposition: Will see in ED, Admit Departure - Departure Date of Disposition Decision: 06/22/19 Time of Disposition Decision: 18:50 DIAGNOSIS: Chest pain, Hypotension Disposition: ADMITTED INPATIENT 09 Certified Medical Emergency: Emergent Condition: Good - Critical Care Note This patient required my direct & personal management of CC.: No Attestation - Physician/ LUTHER Attestation Patient care was provided by Advanced Practice Provider:: No The physician spent face to face time with patient:: Yes Advanced Practice Provider documentation review:: Supervising physician onsite and consulted in the evaluation and care of this patient. The physician did have a face to face encounter with the patient. This chart was documented by the indicated scribe, (Gita Meza Scribe) and accurately reflects the services I performed and decisions made by , Yessica Aguila MD, as attested by the provider's signature.
[2019-06-22 19:55] LABS: CK INDEX 0.9 (0.0-2.5); CK-MB 2.49 ng/mL (0.0-5.0)
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
[2019-06-22] MEDS: MORPHINE IV PRN (23:50)
[2019-06-23 02:15] LABS: CK INDEX 0.4 (0.0-2.5); CK-MB 2.79 ng/mL (0.0-5.0)
[2019-06-23] MEDS: MORPHINE IV PRN ×4 (03:14→16:58)
[2019-06-23 06:39] LABS: BASO# 0.03 X1000 (0.0-0.2); BASO% 0.4 % (0.0-0.8); EOS# 0.18 X1000 (0.0-0.7); EOS% 2.3 % (0.0-10.0); HEMATOCRIT 36.4 % (42.0-52.0); HEMOGLOBIN 11.6 g/dL (14.0-18.0); IMM GRAN# 0.04 X1000 (0.0-0.04); IMM GRAN% 0.5 % (0.0-0.5); LYMPH# 2.02 X1000 (1.2-3.4); LYMPH% 26.1 % (20.5-51.1); MCH 29.3 PG (27-31); MCHC 31.9 g/dL (33-37); MCV 91.9 FL (81-99); MONO# 0.67 X1000 (0.11-0.59); MONO% 8.6 % (1.7-9.3); MPV 10.7 FL (7.4-10.4); NEUT# 4.81 X1000 (1.4-6.5); NEUT% 62.1 % (42.2-75.2); PLT 164 X1000 (130-400); RBC 3.96 XMIL (4.7-6.1); RDW 13.6 % (11.5-14.5); WBC 7.75 X1000 (4.8-10.8)
[2019-06-23 07:11] LABS: CALCIUM 8.2 mg/dL (8.8-10.2); CREATININE 1.7 mg/dL (0.7-1.2); POTASSIUM 4.7 mmol/L (3.5-5.1)
[2019-06-23 10:24] LABS: CK INDEX 0.4 (0.0-2.5); CK-MB 2.39 ng/mL (0.0-5.0)
--- NOTE | 2019-06-23 10:38 | EKG Report ---
Test Performed on : 06/23/2019 07:52:01 AM Test Reason : CP Blood Pressure : / mmHG Vent. Rate : 084 BPM Atrial Rate : 084 BPM P-R Int : 142 ms QRS Dur : 116 ms QT Int : 378 ms P-R-T Axes : 053 055 249 degrees QTc Int : 446 ms Normal sinus rhythm. Incomplete left bundle branch block ST & T wave abnormality, consider inferolateral ischemia Abnormal ECG When compared with ECG of 22-JUN-2019 15:13, (Unconfirmed) Criteria for Anterior infarct are no longer present T wave inversion more evident in Inferior leads Unconfirmed Result
[2019-06-23] MEDS ORDERED: IMODIUM PO PRN (18:02)
[2019-06-23] MEDS ORDERED: TYLENOL PO PRN (18:02)
--- NOTE | 2019-06-23 18:05 | Diag Imaging Result Document ---
PROCEDURE NAME: MYOCARDIAL PERF SCAN, STR/REST - 06/23/2019 INDICATION FOR STUDY: Chest pain. PROCEDURES PERFORMED: 1. Lexiscan stress (results dictated separately by performing physician). 2. One-day stress/rest myocardial perfusion imaging. FINDINGS: 1. There is no evidence of abnormal extracardiac uptake. 2. TID ratio is 1.13. 3. Perfusion imaging demonstrates a moderate-size severe intensity fixed defect located in the inferior apical, mid inferior and basal inferior segments. In addition, there is an overall somewhat mottled appearance of the myocardium, with no other clear delineation of defects that are confined to a vascular territory. No clear evidence of ischemic changes. 4. The right ventricle shows up prominently, suggesting right ventricular hypertrophy and/or pulmonary hypertension. 5. There is a dilated left ventricle with severe reduction in LV systolic function, with an ejection fraction calculated at 26%. End-diastolic volume 209, end-systolic volume 156. Severe global hypokinesis with some regional variability. cc: MD Joselin Belle CRNP
[2019-06-23] MEDS: DILAUDID PO SCH (18:39)
[2019-06-23] MEDS ORDERED: LEXISCAN ONE (19:06)
[2019-06-23] MEDS: SYMBICORT 160/4.5 MICROGM INHALER INH SCH (19:10)
[2019-06-23] MEDS ORDERED: BUPRENORPHINE 15 MCG/HR PATCH TD SCH (20:00)
--- NOTE | 2019-06-23 20:54 | PROGRESS NOTE ---
DATE: 06/23/2019 SUBJECTIVE: Patient has no major complaints. OBJECTIVE: Blood pressure is 105/47, heart rate of 78, respiratory rate 18, temperature 97.4 degrees, 94% on 2 L.Cardiovascular: Regular rate and rhythm. Pulmonary: Bilateral breath sounds. Clear to auscultation. Gastrointestinal: Soft, nontender, nondistended. Bowel sounds are positive. LABORATORY DATA: Today, white count 7.7, hemoglobin and hematocrit 11 and 36, platelets 164,000. Creatinine of 1.7, sugar 271. CPK 622. PROBLEM LIST: 1. Transient hypotension. That has stabilized with fluids. Need to hold any other blood pressure medications. He is literally on almost no medications. 2. Chest pain, which is atypical. We have completed a stress test today, still awaiting results. We will continue to monitor. 3. Chronic obstructive pulmonary disease. Appears to be fairly well compensated. 4. Chronic pain disorder. He is on a Butrans patch, which means he cannot have any other narcotics. So, we will continue to follow. I think if his blood pressure stabilizes and his workup is done, anticipate discharge soon, hopefully in the next 24 hours. I am going to hold his antihypertensives for right now. He is on diclofenac, which we may need to also hold. cc: Oli Mosley MD
[2019-06-23] MEDS ORDERED: LANTUS INSULIN SUBQ SCH (21:00)
[2019-06-23] MEDS ORDERED: LIPITOR PO SCH (21:00)
[2019-06-23] MEDS ORDERED: FLOMAX PO SCH (21:00)
[2019-06-23] MEDS ORDERED: DESYREL PO SCH (21:00)
[2019-06-23] MEDS: DULERA 100 MCG/5 MCG INHALER INH SCH (22:03)
--- NOTE | 2019-06-23 22:21 | GRADED EXERCISE REPORT ---
DATE: 06/23/2019 INDICATION: Chest pain. REFERRING PHYSICIAN: LAURA Xiao. Baseline EKG shows ST changes at inferior leads and lateral leads, which have been there previously, consistent with inferolateral ischemia, but it is at baseline. Peak heart rate 74. Initial heart rate 74. Initial blood pressure 131/79. Patient tolerated procedure without difficulty. After 0.4 mg of Lexiscan infused, he did develop chest pressure, but there were no discernible ischemic changes on his EKG. Granted, he had ST depression in inferior and lateral leads, making things difficult to interpret, but there was not greater than 1 mm changes. The test was felt to be clinically positive, but electrically negative. Myocardial perfusion reported separately. cc: Oli Mosley MD
[2019-06-23] MEDS: WELLBUTRIN SR PO SCH (23:14)
[2019-06-23] MEDS: ENTRESTO 24 MG-26 MG TABLET PO SCH (23:14)
[2019-06-23] MEDS: EFFIENT PO SCH (23:14)
[2019-06-23] MEDS: REGLAN PO SCH (23:14)
[2019-06-23] MEDS: COLACE PO SCH (23:15)
[2019-06-23] MEDS: NIZORAL 2% CREAM TOP SCH (23:18)
[2019-06-24] MEDS: MORPHINE IV PRN ×2 (03:58→10:34)
[2019-06-24] MEDS: ZOFRAN IV PRN ×2 (03:58→10:34)
[2019-06-24] MEDS: REGLAN PO SCH ×3 (05:59→11:33)
[2019-06-24] MEDS ORDERED: MOVANTIK PO SCH (07:00)
[2019-06-24] MEDS: DULERA 100 MCG/5 MCG INHALER INH SCH (07:47)
[2019-06-24] MEDS: SYMBICORT 160/4.5 MICROGM INHALER INH SCH (07:48)
[2019-06-24] MEDS: EFFIENT PO SCH (08:24)
[2019-06-24] MEDS: DILAUDID PO SCH (08:24)
[2019-06-24] MEDS: COLACE PO SCH (08:24)
[2019-06-24] MEDS: WELLBUTRIN SR PO SCH (08:24)
[2019-06-24] MEDS: HUMALOG (PARKWAY) SUBQ SCH ×2 (08:25→11:33)
[2019-06-24] MEDS: ENTRESTO 24 MG-26 MG TABLET PO SCH (08:26)
[2019-06-24] MEDS ORDERED: [UNRECOGNIZED DRUG - OTHER] SQ SCH (09:00)
[2019-06-24] MEDS ORDERED: INSULIN DEGLUDEC SQ SCH (09:00)
[2019-06-24] MEDS ORDERED: DEXILANT PO SCH (09:00)
[2019-06-24] MEDS ORDERED: FERROUS SULFATE PO SCH (09:00)
[2019-06-24] MEDS ORDERED: LIRAGLUTIDE SQ SCH (09:00)
[2019-06-24] MEDS ORDERED: ASPIRIN EC PO SCH (09:00)
[2019-06-24] MEDS ORDERED: MIRALAX PO SCH (09:00)
[2019-06-24] MEDS ORDERED: VITAMIN D PO SCH (09:00)
[2019-06-24] MEDS ORDERED: PATIENT'S OWN MED PO SCH (09:00)
[2019-06-24] MEDS ORDERED: PLAVIX PO SCH (09:00)
[2019-06-24] MEDS ORDERED: ZYPREXA PO SCH (09:00)
[2019-06-24] MEDS ORDERED: NEURONTIN PO SCH (09:00)
[2019-06-24] MEDS: NIZORAL 2% CREAM TOP SCH (10:34)
[2019-06-24 11:10] VITALS: BP 142/77
[2019-06-24] MEDS ORDERED: PNEUMOVAX 23 IM ONE (11:45)
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
--- NOTE | 2019-06-24 23:13 | DISCHARGE SUMMARY ---
ADMISSION DATE: 06/22/2019 DISCHARGE DATE: 06/24/2019 SUBJECTIVE: The patient is doing okay. No major complaints. Overall seems to be doing well. OBJECTIVE: Vital signs: Blood pressure 142/77, heart rate 92, respiratory rate 20, temperature 97.6 degrees, saturation 97% on room air. Cardiovascular: Regular rate and rhythm. Pulmonary: Bilateral breath sounds. Clear to auscultation. Gastrointestinal: Soft, nontender, nondistended. Bowel sounds are positive. ASSESSMENT AND PLAN: The patient is doing well overall. No more chest pain. His stress test, although abnormal, did not clearly show any ischemic changes; therefore, felt to be stable. He had a fixed defect. He had a mottled appearance of the myocardium, but he has had a recent surgery on his sternum associated with a sternal wound infection, but the plan will be to discharge home on his regular medications and we will continue to follow closely. Follow up with LAURA El, and continue to monitor. This is a [id number] encounter note with LAURA Xiao. cc: Oli Mosley MD
== END 2019-06-24 12:24 | disposition home or self-care (01) ==
LOC: P.MEDSURG 15:18 → P.ED 15:18
PROVIDERS: ATTEND Internal Medicine